=== PATIENT | male | born 1975 | race Caucasian/White ===

== ENCOUNTER → 2016-12-10 | Day surgery (SDC) | payer BC ==
[2015-07-16 19:11] VITALS: BMI 25.1
[~2016-12-10] MED LIST: BUPIVACAINE 0.25%-EPINEPHRINE 1:200,000 30 ML ONE; Clindamycin 600 mg/D5W 50 ml 600 MG/50 ML IVB IV ONE; DIBUCAINE OINTMENT 1 OZ TUBE TOP ONE; FENTANYL 100 MCG/2 ML VIAL IV ONE; FENTANYL 100 MCG/2 ML VIAL IV PRN; FENTANYL 100 MCG/2 ML VIAL ONE; HYDROmorphone 1 MG INJECTION IV PRN; LABETALOL 20 MG/4 ML SYRINGE IV PRN; LIDOCAINE 100 MG PFS IV ONE; MEPERIDINE 25 MG/ML TUBEX IV PRN; METHYLENE BLUE 10 MG/ML VIAL ONE; MIDAZOLAM 2 MG/2 ML VIAL IV ONE; ONDANSETRON HCL 4 MG ODT TAB PO PRN; ONDANSETRON HCL 4 MG/2 ML VIAL IV ONE; ONDANSETRON HCL 4 MG/2 ML VIAL IV PRN; OXYCODONE HCL 5 MG TABLET ONE; PROPOFOL 200 MG/20 ML VIAL IV ONE; SUCCINYLCHOLINE 20 MG/1 ML INJ 10 ML MDV IV ONE; hydrALAZINE 20 MG/ML VIAL IV PRN
--- NOTE | 2016-12-10 06:56 | HIM.ANES ---
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) OTHER SPECIFIED DISEASES OF ANUS AND RECTUM (12/10/16) Consented Procedure: FISTULOTOMY - Focused Review of Systems Cardiac History: Yes: Hx Hypertension, Hx Cardiac Disorders, Hx Abnormal Cholesterol/Hyperlipidemia HEENT: Yes: Hx Vision Problem (READING GLASSES), Other HEENT Problems Hx Other HEENT Problems: ENVIORNMENTAL ALLERGIES Respiratory: Yes: Hx Snoring, Hx Recent Cold/Flu (RECENT EAR INFECTION ON ANTIBIOTICS) Gastrointestinal: Yes: Hx Gastroesophageal Reflux Disease, Hx Gastrointestinal Disorders Neurological/Musculoskeletal: No: Hx Neurological Disorders Psychological: Yes Hx Depression, Yes Hx Mental/Emotional Disorders HX Other Psyco/Soc Problems: INSOMNIA Endocrine: Yes: Hx Non-Insulin Dependent Diabetes Blood/Autoimmune: No: Hx AIDS, Hx Hepatitis (type) Smoking Status: Heavy tobacco smoker (5 or more cigarettes/day or daily pipe/ cigar) Surgical History: Yes: Back (2007 CERVICAL FUSION) - Focused Physical Exam NPO since: 12/09/16 2300 Mallampati: Class II Thyromental Distance: Less than 3 Neck: Full Range of Motion Dental: Normal - no significant findings Cardiovascular/Chest: Normal Respiratory: Lungs clear Any problems with anesthesia, including nausea and vomiting?: No Any relatives with a history of Malignant Hyperthermia?: No Does patient have a history of Malignant Hyperthermia?: No Beta Ana Maria given (if appropriate): N/A Does the patient have a history of Motion Sickness-: No Other: Allergies Allergy/AdvReac Type Severity Reaction Status Date / Time ciprofloxacin [From Cipro] Allergy Anaphylaxis Verified 12/10/16 06:30 * ciprofloxacin HCl Allergy Anaphylaxis Verified 12/10/16 06:30 [From Cipro] * clarithromycin [From Biaxin] Allergy Rash-Genera Verified 12/10/16 06:30 lized Penicillins Allergy Anaphylaxis Verified 12/10/16 06:30 * Home Medications Medication Instructions Recorded Last Taken Type Bupropion HCl [Wellbutrin Xl] 150 mg PO DAILY 12/06/16 12/10/16 05:00 History Fenofibrate 160 mg PO HS 12/06/16 12/09/16 21:00 History Metformin HCl [Metformin HCl ER] 1,000 mg PO BID 12/06/16 12/09/16 08:00 History Naproxen Sodium [Aleve] 220 mg PO BID PRN 12/06/16 12/07/16 History Omeprazole [Prilosec] 20 mg PO DAILY 12/06/16 12/10/16 05:00 History Simvastatin [Zocor] 30 mg PO DAILY 12/06/16 12/09/16 21:00 History Valsartan [Diovan] 160 mg PO DAILY 12/06/16 12/10/16 05:00 History Aspirin/Acetaminophen/Caffeine 1 pack PO Q4H PRN 12/10/16 12/09/16 History [Goodric's Ex-Str Powder Pkt (325/500/65mg)] Cetirizine HCl [Zyrtec] 1 tab PO DAILY PRN 12/10/16 12/09/16 10:00 History Height and Weight Patient's height 5 ft 9 in Patient's weight 81.647 kg BMI 25.1 Vital Signs Temperature 97.4 F L 12/10/16 06:13 Pulse Rate 101 12/10/16 06:13 Respiratory Rate 18 12/10/16 06:13 Blood Pressure 143/92 12/10/16 06:13 Pulse Oxygen Saturation 98 12/10/16 06:13 METS - Level of Activity: Climbing stairs(1 flight),walking level ground, running short distance - Anesthetic Plan Anesthesia Type: General ASA Class: 2 -: I have examined this patient and reviewed the medical record. The patient has been assessed prior to anesthesia. Risks and benefits of anesthesia and anesthetic technique options have been discussed and all questions answered. The patient accepts the risk and desires me to proceed with the planned anesthetic.
--- NOTE | 2016-12-10 08:05 | HIMOPRPT ---
DATE OF PROCEDURE: 12/10/16 PREOPERATIVE DIAGNOSES: Anal fistula. POSTOPERATIVE DIAGNOSES: Same. PROCEDURES: Fistulotomy. SURGEON: Jason Escobar MD ANESTHESIA: General. COMPLICATIONS: None. ESTIMATED BLOOD LOSS: Minimal. ANTIBIOTICS: Preoperative antibiotics given. INDICATIONS: The patient is a very pleasant 41-year-old male who had developed an anal fistula. We explained the need for fistulotomy and explained the risk and benefits including the risk of infection, bleeding and anesthesia. The patient also understood the risk of anorectal incontinence and anorectal stenosis. He understood and agreed and was brought for the above-mentioned procedure. OPERATIVE NOTE: The patient was brought to the operating room and placed on the operating table in the supine position. After adequate amount of general anesthesia he was prepped and draped in sterile manner in the lithotomy position. When given the okay by anesthesia after appropriate time-out an exam was performed and showed the fistula at approximately the 2 o'clock position. We went ahead infiltrated local anesthesia and then placed a probe through the fistula tract. The skin and a small amount of muscle was divided over top of the probe. We went ahead and cauterized the granulation tissue. We assured hemostasis and irrigated the wound. The anesthesia had gotten light so we had to wait and then once adequate anesthesia had occurred we went ahead and assured hemostasis and made sure there were no problems. We infiltrated local anesthesia and placed dibucaine ointment. With hemostasis assured a dry dressing was placed. The patient was then awoke and taken recover room in stable condition.
[2016-12-10] MEDS: FENTANYL 100 MCG/2 ML VIAL IV PRN ×2 (08:16→08:28)
[2016-12-10 09:40] VITALS: TEMP 98
[2016-12-10 11:00] VITALS: PULSE 99
--- NOTE | 2016-12-10 17:22 | SC.ANESPOS ---
Post-Anesthesia Note LOC: Fully Awake Post-Anesthesia Assessment: Awake, Returned to Baseline, Hemodynamically Stable , Pain Control Adequate Phase I & II Recovery Complete: Yes Apparent Anesthesia Complication: No : N - Vital Signs Blood Pressure: 147/92 Pulse: 99 Resp Rate: 18 O2 Sat: 100 Temp: 98.0 F
[2016-12-10 17:23] VITALS: BP 147/92
== END ==
LOC: SDC 05:59
PROVIDERS: ATTEND Surgery
PROC: 0D9Q7ZZ Drainage of Anus, Via Natural or Artificial Opening (ICD-10-PCS; principal; 2016-12-10 07:15)
DX: K60.3 Anal fistula (principal); E11.9 Type 2 diabetes mellitus without complications; I10 Essential (primary) hypertension; Z79.84 Long term (current) use of oral hypoglycemic drugs; Z79.899 Other long term (current) drug therapy; F17.210 Nicotine dependence, cigarettes, uncomplicated
CPT/HCPCS: 46270; 82962; J0330; J2001; J2250; J2405; J3010; J3490; Q9968